=== PATIENT | male | born 1975 | race Caucasian/White ===

== ENCOUNTER 2017-03-13 13:28 | Outpatient (CLI) | payer BC ==
--- NOTE | 2017-03-17 17:53 | Diagnostic Imaging Report ---
APPROVED REPORT CPT Code: 48719 Present Symptoms Lower Extremity Pain: Right Lower Extremity Edema: Right RIGHT LEG: Venous imaging reveals a patent deep venous system. There is no evidence of thrombus within the femoral, popliteal or tibial segments. The greater saphenous vein is also within normal limits. Doppler indicates normal spontaneous flow within these segments.
--- NOTE | 2017-03-17 17:53 | Diagnostic Imaging Report ---
APPROVED REPORT CPT Code: 20272 Symptoms Comments: Edema and swelling RIGHT LEG: Common femoral artery waveform analysis is within normal limits at rest. Color duplex sonography reveals patency of the superficial femoral, popliteal and tibial arteries. There is no evidence of stenosis or occlusion within these segments. Doppler tibial artery waveform analysis is within normal limits.
== END 2017-03-23 15:28 | disposition home or self-care (01) ==
LOC: VAS 13:28
DX: R60.0 Localized edema (principal); M79.604 Pain in right leg
CPT/HCPCS: 93926; 93971